=== PATIENT | female | born 1995 | race Caucasian/White ===

== ENCOUNTER 2017-01-11 11:18 | Emergency (ER) | payer SELFPAY ==
[2017-01-11] MEDS ORDERED: ONDANSETRON 4 MG TAB.RAPDIS PO ONE (11:26)
[2017-01-11] MEDS ORDERED: KETOROLAC TROMETHAMINE 30 MG/ML VIAL IM ONE (11:26)
[2017-01-11] MEDS ORDERED: ONDANSETRON 4 MG TAB.RAPDIS ONE (11:31)
[2017-01-11] MEDS ORDERED: KETOROLAC TROMETHAMINE 30 MG/ML VIAL ONE (11:31)
--- NOTE | 2017-01-11 11:38 | ERNOTE ---
ER Female HPI Date of Service: 01/11/17 Stated Complaint: KIDNEY INFECTION Presenting Symptoms: dysuria Time Seen by Provider: 01/11/17 11:22 Source: patient Exam Limitations: no limitations Immunizations: IMMUNIZATION HX Immunizations Up to Date No History of Influenza Vaccine No Hx Pneumococcal Vaccination No Allergies/Adverse Reactions: Allergies No Known Allergies Allergy (Verified 01/11/17 11:29) Home Medications: HOME MEDICATIONS Naproxen [Naprosyn] 500 mg PO BID PRN #60 tab 01/11/17 [Last Taken Unknown] - History of Present Illness Narrative: Pt. comes in with c/o dysuria, and R flank pain for 2 days. Pt. states that she also had symptoms like this two weeks ago but it resolved with water and cranberry juice. Pt. states aht it is accompanied by nausea and vomiting, but denies any SOB, CP, fever, recent injury, or aggravating factors. Review of Systems - Review of Systems Constitutional: Present: no symptoms reported. Absent: recent illness, fever, chills, weakness, fatigue, malaise EYE: Present: no symptoms reported ENT: Present: no symptoms reported Respiratory: Present: no symptoms reported. Absent: shortness of breath, cough , wheezing Cardiology: Present: no symptoms reported. Absent: chest pain, palpitations, edema Gastrointestinal/Abdominal: Present: nausea, vomiting. Absent: diarrhea, constipation, abdominal pain, eating less, drinking less Genitourinary: Present: frequency, pain - R flank, dysuria. Absent: hematuria, decreased urinary output Musculoskeletal: Present: back pain - R flank Skin: Present: no symptoms reported. Absent: rash, change in color Neurological: Present: no symptoms reported. Absent: headache, dizziness/light- headedness, numbness, tingling All Other Systems: All systems neg except as marked - Patient's Past Medical History Patient History - Medical: No pertinent hx Patient History - Cardiac/Respiratory: No pertinent hx Patient History - Cancer: No Hx of Cancer Patient History - Surgical Procedures: No surgical history Patient History - Other: None - Social History Abuse History: No History of abuse Psych History: No pertinent hx - Immunizations Immunizations Up to Date: No Hx Pneumococcal Vaccination: No History of Influenza Vaccine: No Physical Exam - Physical Exam General Appearance: Present: wd/wn, alert, no apparent distress Head Exam: Present: normal inspection, no evidence of injury Eye Exam: Normal inspection: bilateral Neck: Present: normal inspection, nontender. Absent: lymphadenopathy (R), lymphadenopathy (L) Respiratory: Present: no respiratory distress, normal breath sounds, no accessory muscle use, chest nontender, lungs clear Cardiovascular/Chest: Present: regular rate, rhythm, no murmur, normal peripheral pulses Gastrointestinal/Abdominal: Present: normal bowel sounds, nontender, nondistended, soft, no organomegaly Back Exam: Present: normal range of motion, no vertebral tenderness, CVA tenderness (R) Extremity Exam: Present: normal inspection Neurological Exam: Present: alert, oriented, normal mood/affect, no motor/ sensory deficits Skin Exam: Present: normal color, warm/dry. Absent: pallor, skin rash ED Progress - Date and Time Seen: Date and Time: 01/11/17 14:01 Given that pt. had this pain and it resolved the D/Dx are gall stones, renal stones, renal colic, and UTi, feel that this is most likely renal colic and will treat with NSAIDS but will have pt. follow up with PCP for evaluation of gallbladder at some point - Results and Orders Patient's Lab Results:: I have reviewed the patient's lab results. - Vital Signs Patient's Vital Signs:: I have reviewed the patient's vital signs. - CT/Ultrasound CT/Ultrasound Narrative: CT stone protocol with several R sided internephric calculi. Departure Clinical Impression: Renal colic on right side - Departure Disposition: Home self-care Condition: Good Instructions: Renal Colic, [id number] Additional Instructions: Please follow up with primary provider in 2-3 days if not improved. Prescriptions: Naproxen [Naprosyn] 500 mg PO BID PRN #60 tab PRN Reason: Pain
[2017-01-11 12:05] LABS: Urine Bilirubin Negative (NEGATIVE); Urine Blood 50 /ul (NEGATIVE); Urine Ketone Negative (NEGATIVE); Urine Nitrite Negative (NEGATIVE); Urine Protein Negative (NEGATIVE); Urine Urobilinogen Normal (NORMAL); Urine pH 6.5 pH (5.0-7.0)
[2017-01-11 12:23] LABS: Urine Appearance Clear; Urine Color Yellow
[2017-01-11 12:24] LABS: Urine Bacteria None Seen; Urine RBC 0-5 /hpf (0-5); Urine WBC None Seen /hpf (0-5)
[2017-01-11 12:49] LABS: Hematocrit 42.4 % (37.0-47.0); Hemoglobin 15.3 gm/dL (12.5-16.0); Mean Corpuscular Hemoglobin 32.8 pg (27-31); Mean Corpuscular Hgb Conc 36.1 g/dl (32-36); Mean Platelet Volume 9.7 fl (6.0-9.5); Neutrophil # 3.6 K/mm3 (1.3-6.0); Neutrophil % 63.5 % (42-75.0); Platelet Count 188 K/mm3 (150-450); Red Blood Count 4.66 M/mm3 (4.2-5.4); Red Cell Distribution Width 11.9 % (11.5-14.0); White Blood Count 5.6 K/mm3 (4.0-10.5)
[2017-01-11 13:06] LABS: Albumin * 4.5 gm/dl (3.4-5.0); BUN/Creatinine Ratio 8.9 (9.0-21.6); Bilirubin, Total 0.4 mg/dL (0.0-1.1); Ca. Corrected For Albumin 8.7 mg/dL (8.4-10.2); Calcium * 9.4 mg/dL (7.9-10.9)
[2017-01-11 14:14] VITALS: BP 110/69
== END 2017-01-11 14:13 | disposition home or self-care (01) ==
LOC: ER 11:18
DX: N23 Unspecified renal colic (principal)